=== PATIENT | male | born 1940 | race Caucasian/White ===

== ENCOUNTER 2017-04-23 14:46 | Emergency (ER) | payer MEDICARE, MEDICAID ==
[~2017-04-23] VITALS: Ht 152.4 cm; Wt 64.5 kg
[2017-04-23] MEDS ORDERED: METF500T4 PO (15:05)
[2017-04-23] MEDS ORDERED: SITA25 PO (15:05)
[2017-04-23] MEDS ORDERED: CIPR-278 PO (15:05)
[2017-04-23] MEDS ORDERED: SMZ/TMP PO (15:05)
[2017-04-23] MEDS ORDERED: TAMS0.4C32 PO (15:05)
[2017-04-23] MEDS ORDERED: LISI-661 PO (15:05)
[2017-04-23] MEDS ORDERED: FAMO20 PO (15:05)
[2017-04-23] MEDS ORDERED: PIOG15TA6 PO (15:05)
[2017-04-23] MEDS ORDERED: FINA5TAB41 PO (15:05)
[2017-04-23 15:28] LABS: GLUCOSE,POINT OF CARE 192 MG/DL (70-110)
[2017-04-23 18:23] LABS: GLUCOSE, URINE (UA) NEGATIVE (NEGATIVE); KETONES,URINE NEGATIVE (NEGATIVE); LEUKOCYTE ESTERASE ,URINE TRACE (NEGATIVE); PH,URINE 6.5 (5.0-8.0); PROTEIN,URINE NEGATIVE (NEGATIVE)
[2017-04-23 18:49] LABS: ADD UA MICROSCOPIC YES; APPEARANCE,URINE HAZY (CLEAR); OCCULT BLOOD,URINE MODERATE (NEGATIVE); WBC,URINE 0-2 /HPF (0-5)
[2017-04-23 19:24] VITALS: BP 146/88
== END 2017-04-23 20:33 | disposition home or self-care (01) ==
LOC: EMS 14:58
DX: N40.1 Benign prostatic hyperplasia with lower urinary tract symptoms (principal); N13.8 Other obstructive and reflux uropathy; E11.9 Type 2 diabetes mellitus without complications; E78.00 Pure hypercholesterolemia, unspecified; I10 Essential (primary) hypertension
CPT/HCPCS: 51702; 82962; 99284

== ENCOUNTER 2017-04-25 15:12 | Emergency (ER) | payer MEDICARE, MEDICAID ==
[~2017-04-25] VITALS: Ht 149.9 cm; Wt 67.7 kg
[~2017-04-25 15:12] MED LIST: CIPR-278 PO; FAMO20 PO; FINA5TAB41 PO; LISI-661 PO; METF500T4 PO; PIOG15TA6 PO; SITA25 PO; SMZ/TMP PO; TAMS0.4C32 PO
[2017-04-25 20:24] VITALS: BP 147/89
== END 2017-04-25 20:33 | disposition home or self-care (01) ==
LOC: EMS 15:13
DX: T83.031A Leakage of indwelling urethral catheter, initial encounter (principal); N32.0 Bladder-neck obstruction; I10 Essential (primary) hypertension; E11.9 Type 2 diabetes mellitus without complications; E78.00 Pure hypercholesterolemia, unspecified; Z79.899 Other long term (current) drug therapy
CPT/HCPCS: 51702; 99284

== ENCOUNTER 2019-10-28 12:32 | Emergency (ER) | payer MEDICAID, MEDICARE ==
[~2019-10-28] VITALS: Ht 157.5 cm; Wt 58.0 kg
[~2019-10-28 12:32] MED LIST changes: +FINA-27 PO; -FINA5TAB41 PO; +METF-960 PO; -METF500T4 PO; +TAMS-13 PO; -TAMS0.4C32 PO
[2019-10-28] MEDS: ACETAMINOPHEN 500 MG TABLET PO ONE (14:29)
[2019-10-28] MEDS: SODIUM CHLORIDE 0.9% 1,000 ML IV ONE ×2 (14:29→16:22)
[2019-10-28 15:11] LABS: BASOPHILS % (AUTO) 0.1 % (0.0-2.0); EOSINOPHILS % (AUTO) 0.1 % (1.0-6.0); HEMATOCRIT 41.3 % (41-53); HEMOGLOBIN 14.3 g/dL (13.5-17.5); LYMPHOCYTES # (AUTO) 0.2 K/uL (1.0-4.8); LYMPHOCYTES % (AUTO) 2.5 % (22.0-44.0); MEAN CORPUSCULAR HEMOGLOBIN 32.3 pg (26.0-34.0); MEAN CORPUSCULAR HGB CONC 34.6 G/dL (31.0-37.0); MEAN CORPUSCULAR VOLUME 93 fL (80-100); MONOCYTES # (AUTO) 0.3 K/uL (0.1-1.0); MONOCYTES % (AUTO) 3.3 % (2.0-9.0); NEUTROPHILS # (AUTO) 8.5 K/uL (1.8-7.7); PLATELET COUNT (AUTO) 106 K/uL (150-450); RED BLOOD CELL COUNT(AUTO) 4.43 MIL/uL (4.50-5.90); RED CELL DISTRIBUTION WIDTH 13.6 % (11.5-14.5)
[2019-10-28 15:15] LABS: CALCIUM, TOTAL 9.9 mg/dL (8.8-10.5); CREATININE 1.59 mg/dL (0.60-1.30); POTASSIUM 3.8 mmol/L (3.5-5.1)
[2019-10-28 15:21] LABS: ALBUMIN 4.2 g/dL (3.4-5.0); BILIRUBIN,TOTAL 0.9 mg/dL (0.1-1.0); TOTAL PROTEIN, SERUM 8.9 g/dL (6.4-8.2)
[2019-10-28 15:25] LABS: APPEARANCE,URINE TURBID (CLEAR); GLUCOSE, URINE (UA) >=1000 mg/dL (NEGATIVE); KETONES,URINE >=80 mg/dL (NEGATIVE); LEUKOCYTE ESTERASE ,URINE LARGE (NEGATIVE); NITRATE,URINE POSITIVE (NEGATIVE); OCCULT BLOOD,URINE LARGE (NEGATIVE); PROTEIN,URINE SEE CONFIRM (NEGATIVE)
[2019-10-28 15:38] LABS: BILIRUBIN,URINE PRELIM. POSITIVE (NEGATIVE)
[2019-10-28 15:40] LABS: LACTIC ACID 5.3 mmol/L (0.4-2.0)
[2019-10-28] MEDS ORDERED: SODIUM CHLORIDE 0.9% 100 ML ONE (15:44)
[2019-10-28] MEDS ORDERED: IOVERSOL 350 MG/ML 100 ML VIAL ONE (15:44)
[2019-10-28 15:47] LABS: SULFOSALICYLIC ACID,URINE 4+ (Negative)
[2019-10-28 15:49] LABS: RBC,URINE Full Field /HPF (0-2); WBC,URINE >100 /HPF (0-5)
[2019-10-28 15:50] LABS: BACTERIA,URINE Many /HPF (None Seen)
[2019-10-28 15:51] LABS: SQUAMOUS EPITHELIAL CELL,UR Rare /LPF (None Seen)
[2019-10-28 16:00] LABS: INR 1.1 (0.9-1.1); PROTHROMBIN TIME 11.4 SEC (9.4-11.6)
[2019-10-28] MEDS: PIPERACILLIN/TAZO 3.375 GM/D5W 50 ML IV ONE (16:19)
[2019-10-28] MEDS: VANCOMYCIN HCL 1 GM/D5% WATER 200 ML IV ONE (16:47)
[2019-10-28] MEDS: MORPHINE SULFATE 2 MG/ML SYRINGE IVP ONE (18:21)
[2019-10-28 21:15] VITALS: BP 111/85
[2019-10-29 01:28] LABS: GLUCOSE,POINT OF CARE 289 MG/DL (70-110)
== END 2019-10-28 21:45 | disposition short-term general hospital (02) ==
LOC: EMS 12:33
DX: N39.0 Urinary tract infection, site not specified (principal); E87.2 Acidosis; E11.9 Type 2 diabetes mellitus without complications; E78.00 Pure hypercholesterolemia, unspecified; I10 Essential (primary) hypertension; Z79.899 Other long term (current) drug therapy; Z79.84 Long term (current) use of oral hypoglycemic drugs
CPT/HCPCS: 36415; 71045; 74176; 74177; 80053; 81001; 82962; 83605; 83690; 85025; 85610; 85730; 87040; 87077; 87086; 96365; 96366; 96368; 96375; 99291; J2270; J2543; J3370; J7050; Q9967